=== PATIENT | male | born 1955 | race Native Hawaiian/Other Pacific Islander ===

== ENCOUNTER 2022-07-31 09:29 | Emergency (ER) | payer OTHER ==
[~2022-07-31] VITALS: Ht 180.3 cm; Wt 99.8 kg
[2022-07-31 09:29] VITALS: TEMP 97.7
[2022-07-31 10:09] LABS: PLATELET COUNT 220 K/uL (142-355)
[2022-07-31 10:12] LABS: POTASSIUM 4.2 mmol/L (3.6-5.2)
[2022-07-31 14:30] VITALS: BP 119/80
== END 2022-07-31 16:10 | disposition short-term general hospital (02) ==
LOC: ED 09:29
PROVIDERS: Emergency Medicine Emergency Medical Services
PROC: 0T9B70Z Drainage of Bladder with Drainage Device, Via Natural or Artificial Opening (ICD-10-PCS; principal; 2022-07-31)
DX: R41.82 Altered mental status, unspecified (principal); J18.9 Pneumonia, unspecified organism; N20.0 Calculus of kidney; Z11.52 Encounter for screening for COVID-19; Z79.899 Other long term (current) drug therapy; Z51.81 Encounter for therapeutic drug level monitoring
CPT/HCPCS: 36600; 80053; 81000; 82550; 82805; 83605; 83735; 84484; 85027; 85379; 85610; 87040; 87635; 93005; 94664; 96361; 96365; 96376; 99285; J0696; J2310; Q9963; U0003

== ENCOUNTER 2022-08-22 16:31 | Outpatient (CLI) | payer OTHER | END 2022-08-22 19:17 | disposition home or self-care (01) | LOC: LABW 16:31 | PROVIDERS: ATTEND Nurse Practitioner Family | DX: R19.7 Diarrhea, unspecified (principal) | CPT/HCPCS: 87324; 87449 ==

== ENCOUNTER 2022-09-12 09:33 | Outpatient (CLI) | payer OTHER | END 2022-09-12 19:20 | disposition home or self-care (01) | LOC: MRI 09:33 | PROVIDERS: ATTEND Family Medicine | DX: L89.893 Pressure ulcer of other site, stage 3 (principal) ==

== ENCOUNTER 2022-10-20 13:48 | Outpatient (CLI) | payer OTHER ==
[2022-10-20 14:07] LABS: PLATELET COUNT 143 K/uL (142-355)
[2022-10-20 14:21] LABS: POTASSIUM 3.9 mmol/L (3.6-5.2)
== END 2022-10-20 19:27 | disposition home or self-care (01) ==
LOC: LAB 13:48
PROVIDERS: ATTEND Family Medicine
DX: M86.161 Other acute osteomyelitis, right tibia and fibula (principal); L89.893 Pressure ulcer of other site, stage 3
CPT/HCPCS: 80053; 80202; 85027; 85652; 86140

== ENCOUNTER 2022-10-24 09:42 | Outpatient (CLI) | payer OTHER ==
[2022-10-24 09:56] LABS: PLATELET COUNT 142 K/uL (142-355)
[2022-10-24 10:26] LABS: POTASSIUM 3.7 mmol/L (3.6-5.2)
== END 2022-10-24 19:02 | disposition home or self-care (01) ==
LOC: LAB 09:42
PROVIDERS: ATTEND Family Medicine
DX: M86.161 Other acute osteomyelitis, right tibia and fibula (principal); L89.893 Pressure ulcer of other site, stage 3
CPT/HCPCS: 80053; 80202; 85027; 85652; 86140

== ENCOUNTER 2022-10-28 13:54 | Outpatient (CLI) | payer OTHER ==
[2022-10-28 17:13] LABS: POTASSIUM 3.7 mmol/L (3.6-5.2)
[2022-10-28 17:16] LABS: PLATELET COUNT 151 K/uL (142-355)
== END 2022-10-28 19:19 | disposition home or self-care (01) ==
LOC: LAB 13:54
PROVIDERS: ATTEND Family Medicine
DX: M86.161 Other acute osteomyelitis, right tibia and fibula (principal); L89.893 Pressure ulcer of other site, stage 3
CPT/HCPCS: 80053; 80202; 85027

== ENCOUNTER 2022-10-31 09:41 | Outpatient (CLI) | payer OTHER ==
[2022-10-31 10:00] LABS: PLATELET COUNT 164 K/uL (142-355)
[2022-10-31 10:21] LABS: POTASSIUM 3.7 mmol/L (3.6-5.2)
== END 2022-10-31 19:08 | disposition home or self-care (01) ==
LOC: LAB 09:41
PROVIDERS: ATTEND Family Medicine
DX: M86.161 Other acute osteomyelitis, right tibia and fibula (principal); L89.893 Pressure ulcer of other site, stage 3
CPT/HCPCS: 80053; 80202; 85027; 85652; 86140

== ENCOUNTER 2022-11-07 09:41 | Outpatient (CLI) | payer OTHER ==
[2022-11-07 10:46] LABS: PLATELET COUNT 169 K/uL (142-355)
[2022-11-07 10:54] LABS: POTASSIUM 4.2 mmol/L (3.6-5.2)
== END 2022-11-07 19:11 | disposition home or self-care (01) ==
LOC: LAB 09:41
PROVIDERS: ATTEND Family Medicine
DX: M86.161 Other acute osteomyelitis, right tibia and fibula (principal); L89.893 Pressure ulcer of other site, stage 3
CPT/HCPCS: 80053; 80202; 85027; 85652; 86140

== ENCOUNTER 2022-11-09 09:18 | Outpatient (CLI) | payer OTHER | END 2022-11-09 19:18 | disposition home or self-care (01) | LOC: LAB 09:18 | PROVIDERS: ATTEND Family Medicine | DX: M86.161 Other acute osteomyelitis, right tibia and fibula (principal) | CPT/HCPCS: 80202 ==

== ENCOUNTER 2022-11-11 10:25 | Outpatient (CLI) | payer OTHER | END 2022-11-11 18:55 | disposition home or self-care (01) | LOC: LAB 10:25 | PROVIDERS: ATTEND Family Medicine | DX: M86.161 Other acute osteomyelitis, right tibia and fibula (principal) | CPT/HCPCS: 80202 ==

== ENCOUNTER 2022-11-13 15:52 | Emergency (ER) | payer OTHER ==
[~2022-11-13] VITALS: Ht 180.3 cm; Wt 93.0 kg
[2022-11-13 15:56] VITALS: BP 105/67; TEMP 98.2
== END 2022-11-13 16:25 | disposition home or self-care (01) ==
LOC: ED 15:52
DX: Z46.82 Encounter for fitting and adjustment of non-vascular catheter (principal)
CPT/HCPCS: 99283

== ENCOUNTER 2022-11-15 20:38 | Outpatient (CLI) | payer OTHER ==
[2022-11-15 21:03] LABS: PLATELET COUNT 226 K/uL (142-355)
[2022-11-15 21:24] LABS: POTASSIUM 3.5 mmol/L (3.6-5.2)
== END 2022-11-15 21:18 | disposition home or self-care (01) ==
LOC: LAB 20:38
PROVIDERS: ATTEND Family Medicine
DX: M86.161 Other acute osteomyelitis, right tibia and fibula (principal); L89.893 Pressure ulcer of other site, stage 3
CPT/HCPCS: 80053; 80202; 85027; 85652; 86140

== ENCOUNTER 2022-11-19 11:24 | Outpatient (CLI) | payer OTHER | END 2022-11-19 18:47 | disposition home or self-care (01) | LOC: LAB 11:24 | PROVIDERS: ATTEND Family Medicine | DX: L89.893 Pressure ulcer of other site, stage 3 (principal) | CPT/HCPCS: 80202 ==

== ENCOUNTER 2022-12-15 11:21 | Outpatient (CLI) | payer OTHER | END 2022-12-15 21:55 | disposition home or self-care (01) | LOC: NM 11:21 | PROVIDERS: ATTEND Family Medicine | DX: L89.893 Pressure ulcer of other site, stage 3 (principal) | CPT/HCPCS: A9561 ==